=== PATIENT | female | born 1980 | race Caucasian/White ===

== ENCOUNTER → 2019-01-18 16:14 | Outpatient (CLI) | payer MEDICAID, SELFPAY ==
[2019-01-19 09:38] LABS: Hepatitis B Surface Antigen Non-Reactive (Nonreactive); Hepatitis C Antibody Non-Reactive (Nonreactive)
== END ==
DX: R63.0 Anorexia (principal); R53.81 Other malaise; R11.0 Nausea
CPT/HCPCS: 36415; 86803; 87340

== ENCOUNTER → 2019-02-23 13:55 | Outpatient (CLI) | payer MEDICAID, SELFPAY ==
[2019-02-23 15:48] LABS: AST(SGOT) 20 U/L (15-37); Alanine Aminotransfer ALT/SGPT 22 U/L (13-56); Albumin, Serum 3.7 g/dL (3.2-5.0); Alkaline Phosphatase 65 U/L (45-117); Bilirubin, Direct 0.15 mg/dL (0.00-0.30); Globulin 3.3 g/dL (2.2-4.2)
== END ==
DX: R63.0 Anorexia (principal); R53.81 Other malaise; R11.0 Nausea
CPT/HCPCS: 36415; 80076